=== PATIENT | female | born 1970 | race Caucasian/White ===

== ENCOUNTER 2017-09-08 19:09 | Emergency (ER) | payer MEDICAID ==
[~2017-09-08] VITALS: Ht 167.6 cm; Wt 98.4 kg
[~2017-09-08 19:09] MED LIST: [UNRECOGNIZED DRUG - CODE]
[2017-09-08 22:43] VITALS: BP 112/74
[2017-09-08] MEDS ORDERED: KETOROLAC TROMETH 60MG/2ML VIAL IM ONE (23:00)
== END 2017-09-08 23:16 | disposition home or self-care (01) ==
LOC: ER 19:09
DX: M94.0 Chondrocostal junction syndrome [Tietze] (principal); F17.210 Nicotine dependence, cigarettes, uncomplicated; I10 Essential (primary) hypertension
CPT/HCPCS: 71250; 96372; 99284; J1885

== ENCOUNTER 2022-03-27 10:59 | Emergency (ER) | payer MEDICAID ==
[~2022-03-27] VITALS: Ht 167.6 cm; Wt 90.2 kg
[2022-03-27] MEDS ORDERED: methylPREDNISolone SOD SUCC 125 MG/2 ML VL IM ONE (15:45)
[2022-03-27] MEDS ORDERED: diphenhdrAMINE HCL 50 MG/1 ML VL IM ONE (15:45)
[2022-03-27] MEDS ORDERED: ERY05OO OP (15:48)
[2022-03-27] MEDS ORDERED: CLIN300C8 PO (15:48)
[2022-03-27] MEDS ORDERED: PRED10TA PO (15:48)
[2022-03-27 16:46] VITALS: BP 165/122
== END 2022-03-27 16:53 | disposition home or self-care (01) ==
LOC: ER 10:59
DX: L25.9 Unspecified contact dermatitis, unspecified cause (principal); F17.210 Nicotine dependence, cigarettes, uncomplicated; I10 Essential (primary) hypertension
CPT/HCPCS: 96372; 99284; J1200; J2930

== ENCOUNTER 2022-09-08 08:26 | Emergency (ER) | payer MEDICAID ==
[~2022-09-08] VITALS: Ht 167.6 cm; Wt 90.9 kg
[~2022-09-08 08:26] MED LIST changes: +CLIN300C8 PO; +ERY05OO OP; +PRED10TA PO
[2022-09-08 09:20] VITALS: BP 153/83
[2022-09-08] MEDS ORDERED: HYDROcodone-ACET 10/325MG TAB PO ONE (09:45)
[2022-09-08] MEDS ORDERED: KETOROLAC TROMETH 60MG/2ML VIAL IM ONE (09:45)
[2022-09-08] MEDS ORDERED: PRED20TA2 PO (10:30)
[2022-09-08] MEDS ORDERED: IBUP800T27 PO (10:30)
== END 2022-09-08 10:33 | disposition home or self-care (01) ==
LOC: ER 08:26
DX: M54.41 Lumbago with sciatica, right side (principal); M51.34 Other intervertebral disc degeneration, thoracic region; I10 Essential (primary) hypertension; F17.210 Nicotine dependence, cigarettes, uncomplicated; Z90.49 Acquired absence of other specified parts of digestive tract; Z79.899 Other long term (current) drug therapy
CPT/HCPCS: 72100; 96372; 99283; J1885

== ENCOUNTER 2025-02-08 15:15 | Inpatient (IN) | payer MEDICAID ==
[~2025-02-08] VITALS: Ht 167.6 cm; Wt 93.3 kg
[~2025-02-08 15:15] MED LIST changes: +CLIN1CAP70 PO; -CLIN300C8 PO; +IBUP-1456 PO; +PRED20TA2 PO
[2025-02-08] MEDS ORDERED: cloNIDine 0.1 mg/24hr 7 DAY PATCH TD ONE (16:00)
[2025-02-08 16:35] LABS: Hematocrit 44.3 % (36.0-46.0); Hemoglobin 15.0 g/dL (12.2-16.2); Mean Corpuscular Hemoglobin 30.4 pg (28.0-32.0); Mean Corpuscular Volume 89.8 fL (80.0-100.0); Nucleated Red Blood Cells % 0.0 %
[2025-02-08 16:37] LABS: Sodium 139 mmol/L (136-145)
[2025-02-08 16:38] LABS: Anion Gap 11 (5-15); Carbon Dioxide 21 mmol/L (20-31)
[2025-02-08 16:42] LABS: Calcium 10.7 mg/dL (8.7-10.4); Chloride 107 mmol/L (98-107); Potassium 3.4 mmol/L (3.5-5.1)
[2025-02-08 16:43] LABS: BUN/Creatinine Ratio 19.7 (10.0-20.0); Blood Urea Nitrogen 15 mg/dL (9-23)
[2025-02-08 16:45] LABS: Glucose 109 mg/dL (74-106)
--- NOTE | 2025-02-08 17:19 | DVH ---
INDICATION: R/o fracture COMPARISON: None TECHNIQUE: CT of the right was performed without contrast. Volume transverse images were obtained and reconstructed in multiple planes using bone and soft tissue algorithms. CONTRAST: None Radiation Dose Information: CT Dose: CTDI volume is 7.75 mGy. Dose-length product is 2.13 mGy*cm FINDINGS: The alignment is normal. Small joint effusion There is no fracture, dislocation, or focal osseous lesions. The soft tissues are normal. IMPRESSION: 1. Small joint effusion 2. No acute fracture 3. All CT scans at this medical facility are performed using dose modulation techniques as appropriat e to a performed exam including the following: Automated exposure control was utilized; adjustment of the MA and/or KV according to patient size; and use of iterative reconstruction technique.
--- NOTE | 2025-02-08 17:23 | ED.PDOC ---
Musculoskeletal HPI Comments 54-year-old female presents with a chief complaint of acute left knee pain after a recent injury. They experienced acute pain in the left knee a few hours ago while patient was adjusting herself in her truck. The sensation was described as a rubber band that snapped. Onset was sudden. The pain is now located to the left knee and described as severe. Patient took ibuprofen and ice the knee with minimal improvement. Patient denies any numbness of the affected extremity. Unable to bear weight Denies trauma to the knee or recent fall Denies skin color changes around the knee Denies masses around the knee Denies fever chills night sweats nausea vomiting Denies previous surgeries to the knee nor significant injury Patient has a history of high blood pressure and has undergone a complete hysterectomy. She denies tobacco alcohol or drugs Chief Complaint: Lower Extremity Time Seen by MD: 15:24 Primary Care Provider: CHAR Flowers Notes: Nurses Notes, Medications, Allergies Allergies: Coded Allergies: Azithromycin (Verified Allergy, Unknown, 02/08/25) Ciprofloxacin (Verified Allergy, Unknown, 02/08/25) Uncoded Allergies: ADHESIVE (Allergy, Unknown, 02/08/25) Home Meds Active Scripts Prednisone (Prednisone) 20 Mg Tab, 40 MG PO DAILY, #20 MG Prov:CRIS MORAN 09/08/22 Ibuprofen (Ibuprofen) 800 Mg Tab, 1 TAB PO TID, #30 TAB Prov:CRIS MORAN 09/08/22 Erythromycin (Erythromycin) 5 Mg/Gm Oin, 1 MG OP 6XD for 7 Days, #1 OIN 0 Refills Prov:KELLY PORTER 03/27/22 Prednisone (Prednisone) 10 Mg Tab, 10 MG PO BID for 5 Days, #10 MG 0 Refills Prov:KELLY PORTER 03/27/22 Clindamycin Hcl (Clindamycin Hcl) 300 Mg Cap, 1 CAP PO TID for 7 Days, #21 CAP 0 Refills Prov:KELLY PORTER 03/27/22 Reported Medications Atenolol & Chlorthalidone (Atenolol/Chlorthalidone) 1 Tab Tab 01/06/12 Information Source: Patient Mode of Arrival: Wheelchair Past Medical History PAST MEDICAL HISTORY: HTN Surgical History: 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[employer]ANING History: No Pertinent [employer]PERATIONS SUPERVISOR [employer] History Family History Family History: Reviewed,noncontributory to illness Social History Smoker: Cigarettes Alcohol: Occasionally Drugs: Denies Drug Use Lives In: Home Physical Exam General Appearance: No Apparent Distress, Normal HEENT: Normal ENT Inspection, Pharynx Normal, TMs Normal Neck: Full Range of Motion, Non-Tender, Normal, Normal Inspection Respiratory: Chest Non-Tender, Lungs Clear, No Accessory Muscle Use, No Respiratory Distress, Normal Breath Sounds Cardiovascular: No Murmur, No Gallop, Regular Rate/Rhythm Breast Exam: Deferred Gastrointestinal: No Organomegaly, Non Tender, No Pulsatile Mass, Normal Bowel Sounds, Soft Genitalia: Deferred Pelvic: Deferred Rectal: Deferred Extremities: No calf tenderness, Normal capillary refill, Normal inspection, Normal range of motion, Non-tender, No pedal edema Musculoskeletal : Location: Left Extremity Location: Knee (Limited movement due to pain. No gross abnormality on inspection. Neurovascular sensation is intact and DP 2+) Apperance: Normal Neurologic: Alert, No Motor Deficits, Normal Affect, Normal Mood, No Sensory Deficits Cerebellar Function: Normal Reflexes: Normal Skin: Dry, Normal Color, Warm Lymphatic: No Adenopathy Was a procedure done? Was a procedure done?: No Differential Diagnosis EXT Differential Diagnosis: Fracture, Sprain, Dislocation X-Ray, Labs, Meds, VS Vital Signs Date Time Temp Pulse Resp B/P (MAP) Pulse Ox O2 Delivery O2 Flow Rate FiO2 02/08/25 20:53 98.6 86 16 151/85 (107) 97 98.6 02/08/25 15:58 175/101 02/08/25 15:18 98.1 84 16 175/101 98 98.1 Lab Test 02/08/25 20:28 02/08/25 16:23 Range/Units Urine Color Light-yellow Yellow Urine Clarity Clear Clear Urine pH 6.5 5.0-9.0 Urine Specific [place] 1.011 1.001-1.035 Urine Protein Negative Negative Urine Ketones Negative Negative Urine Blood Negative Negative /uL Urine Nitrite Negative Negative Urine Bilirubin Negative Negative Urine Urobilinogen Normal Negative mg/dL Urine Leukocyte Esterase Negative Negative /uL Urine Glucose Normal Normal mg/dL White Blood Count 19.0 H 4.4-10.8 10^3/uL Red Blood Count 4.94 4.0-5.20 10^6/uL Hemoglobin 15.0 12.2-16.2 g/dL Hematocrit 44.3 36.0-46.0 % Mean Corpuscular Volume 89.8 80.0-100.0 fL Mean Corpuscular Hemoglobin 30.4 28.0-32.0 pg Mean Corpuscular Hemoglobin Concent 33.9 32.0-36.0 g/dL Red Cell Distribution Width 12.8 11.8-14.3 % Platelet Count 407 140-450 10^3/uL Mean Platelet Volume 7.6 6.9-10.8 fL Neutrophils (%) (Auto) 78.2 37.0-80.0 % Lymphocytes (%) (Auto) 15.6 10.0-50.0 % Monocytes (%) (Auto) 5.3 0.0-12.0 % Eosinophils (%) (Auto) 0.5 0.0-7.0 % Basophils (%) (Auto) 0.4 0.0-2.0 % Neutrophils # (Auto) 14.9 H 1.6-8.6 10 ^3/uL Lymphocytes # (Auto) 3.0 0.4-5.4 10 ^3/uL Monocytes # (Auto) 1.0 0-1.3 10 ^3/uL Eosinophils # (Auto) 0.1 0-0.8 10 ^3/uL Basophils # (Auto) 0.1 0-0.2 10 ^3/uL Nucleated Red Blood Cells 0.0 % Sodium Level 139 136-145 mmol/L Potassium Level 3.4 L 3.5-5.1 mmol/L Chloride Level 107 98-107 mmol/L Carbon Dioxide Level 21 20-31 mmol/L Anion Gap 11 5-15 Blood Urea Nitrogen 15 9-23 mg/dL Creatinine 0.76 0.550-1.02 mg/dL Glomerular Filtration Rate Calc 92 >90 mL/min BUN/Creatinine Ratio 19.7 10.0-20.0 Serum Glucose 109 H 74-106 mg/dL Calcium Level 10.7 H 8.7-10.4 mg/dL Current Medications Medications (Trade) Dose Ordered Sig/Ever Route Start Time Stop Time Status Last Admin Clonidine HCl (Catapres Tablet) 0.1 mg ONCE ONCE PO 02/08/25 16:00 02/08/25 16:01 DC 02/08/25 15:58 Acetaminophen/ Hydrocodone Bitart ([place] 10/325MG Tab) 1 tab ONCE ONCE PO 02/08/25 18:00 02/08/25 18:01 DC 02/08/25 19:41 X-Ray, Labs, Meds, VS Comment 54-year-old female presents with a chief complaint of acute left knee pain after a recent injury. Patient arrives alert and oriented, ABC's intact, afebrile, vital signs stable, saturating well in room air CBC was ordered to exclude anemia, blood loss, or infection. BMP was ordered to exclude electrolyte abnormalities, renal failure, dehy dration, hyperglycemia Urinalysis was ordered to rule out UTI or hematuria. CT of the L Knee Diagnostic imaging ordered by me and results interpreted by radiology :small joint effusion Patients work up was remarkable for intractable left knee pain. Results were relayed to the patient and patient feels uncomfortable being discharged at this time. The patient's workup reveals that the patient needs further evaluation and/or treatment for the above medical conditions. We will benefit from an MRI and possible ortho consult Patient verbalized understanding of the above and is awaiting further evaluation by the admitting service. Time of 1ST Reevaluation: 17:21 Reevaluation 1ST: Unchanged Time of 2ND Reevaluation: 17:47 Reevaluation 2ND: Unchanged Patient Education/Counseling: Diagnosis, Treatment Family Education/Counseling: Diagnosis, Treatment Departure 1 Departure Time of Disposition: 17:47 Impression: Primary Impression: Intractable pain Additional Impression: Left knee pain Qualified Codes: M25.562 - Pain in left knee Disposition: 09 ADMITTED INPATIENT Condition: Fair Critical Care Note Critical Care Time?: No Stability Stability form required: No Heart Score Heart Score: Heart Score Response (Comments) Value History N/A 0 EKG N/A 0 Age N/A 0 Risk Factors N/A 0 Troponin N/A 0 Total 0 HENNY CHO NP Feb 08, 2025 17:23
[2025-02-08] MEDS: HYDROcodone-ACET 10/325MG TAB PO ONE (19:41)
[2025-02-08 20:36] LABS: Urine Protein, UAD Negative (Negative)
[2025-02-09] MEDS: SODIUM CHLORIDE 0.9% 1,000 ML IV SCH (01:11)
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
[2025-02-09] MEDS: ONDANSETRON HCL 4 MG/2 ML VIAL IV ONE (02:06)
[2025-02-09] MEDS: hydrALAZINE HCL 20 MG/ML VL IV ONE (02:06)
[2025-02-09] MEDS: HYDROcodone-ACET 5/325MG TAB PO PRN (02:21)
--- NOTE | 2025-02-09 02:47 | ECG ---
[facility] Test Date: 2025-02-09 Test Time: 02:41:43 Pat Name: JUANA BENAVIDEZ Department: ED Room: [facility] Gender: F Human Resource Adviser: geovany : 1970 Requested By: EMERGENCY EMERGENCY Order Number: [id number] Reading MD: Kuldeep Brower Measurements Intervals [place] Rate: 120 P: 60 FL: 145 QRS: 60 QRSD: 86 T: 19 QT: 328 QTc: 464 Interpretive Statements Sinus tachycardia Multiple ventricular premature complexes Aberrant complex Probable left atrial enlargement Minimal ST depression, diffuse leads Electronically Signed On 02-09-2025 18:26:13 PDT by Kuldeep Brower Please click the below link to view image of tracing.
[2025-02-09] MEDS: METOCLOPRAMIDE HCL 5MG/ml INJ 2ml VIAL IV ONE (03:49)
[2025-02-09] MEDS: ONDANSETRON HCL 4 MG/2 ML VIAL IV PRN (06:54)
[2025-02-09] MEDS: CHLORTHALIDONE 25 MG TAB PO SCH (08:49)
[2025-02-09 08:50] VITALS: PULSE 88; RESP 20; O2SAT 95
[2025-02-09] MEDS: PANTOPRAZOLE 40 MG/10 ML VIAL INJ IV SCH (10:20)
[2025-02-09] MEDS: ATENOLOL 25 MG TAB PO SCH (10:21)
[2025-02-09 14:29] LABS: Hematocrit 44.9 % (36.0-46.0); Hemoglobin 15.4 g/dL (12.2-16.2); Mean Corpuscular Hemoglobin 30.9 pg (28.0-32.0); Mean Corpuscular Volume 90.2 fL (80.0-100.0); Nucleated Red Blood Cells % 0.1 %
--- NOTE | 2025-02-09 14:49 | DVHPNRES ---
Progress Note Date Seen: Feb 09, 2025 Resident Creating Document: TALHA CARTER RESIDENT Medical Necessity Reason Pt with a Central, PICC or Fol: No Subjective Review of Systems Patient is a 54-year-old female with prior medical history of hypertension, anxiety, herniated disc, and cervical intraepithelial neoplasm, who presented to the ED with chief complaint of left knee pain. The patient states yesterday she was adjusting the seat in her car when she felt a sudden popping tearing sensation in her left knee accompanied by sudden onset of sharp pain described as constant, intensity 10/10, which is worse on the lateral aspect of her knee. additionally states she can no longer bear weight on her left leg, which prompted her to seek medical care. On evaluation in the ED, patient was found to be hypertensive with blood pressure of 175/101 and had limited movement of the left knee. Initial labs significant for WBCs of 19 and mild hypokalemia. Knee CT shows a small joint effusion and no acute fracture. Patient was given p.o. clonidine for hypertension. patient was started on pain regimen and was admitted for further workup and monitoring. Surgical: Colposcopy, Bilateral oophorectomy and total hysterectomy in October of 2024 Social: Refers occasional marijuana use approximately 3 times a week, refers 20 year tobacco habit of 6 cigarettes a day states she quit 1 year ago, currently denies alcohol use. States that she lives in her own and feels safe. Patient seen in the ED. She is AOx4. Currently states she well, however the pain persists. Currently she states the pain is 6/10 in intensity. additionally refers to episodes of vomiting overnight, however this has been resolved. patient has been persistently hypertensive, home medications were started again. orthopedics consult has been placed, Dr. Weston has recommended an MRI of the knee be obtained. Patient is currently pending MRI knee and further evaluation by orthopedics. We will continue to monitor. Review of Systems: Constitutional: Denies weight loss, fever and chills. HEENT: Denies changes in vision and hearing. Respiratory: Denies shortness of breath and cough Cardiovascular: Denies chest discomfort or palpitations GI: Denies abdominal distention, abdominal pain, diarrhea : Denies dysuria and urinary frequency. Musculoskeletal: Refers pain in the left knee, refers inability to bear weight on left leg Skin: Denies rash and pruritus. Neurological: denies dizziness headache vision or hearing problems Objective vital signs Vital Sign Date Time Temp Pulse Resp B/P (MAP) Pulse Ox O2 Delivery O2 Flow Rate FiO2 02/09/25 10:22 84 20 131/80 (97) 95 02/09/25 08:50 Room Air* 0 21 02/09/25 08:50 97.7 97.7 medications Current Medications Medications Dose Ordered Sig/Ever Route Start Time Stop Time Status Last Admin Dose Admin Sodium Chloride 1,000 ml @ 60 mls/hr [id number] IV 02/08/25 21:45 Acetaminophen/ Hydrocodone Bitart 1 tab Q4HP PRN PO 02/08/25 21:45 02/09/25 06:54 1 TAB Atenolol 50 mg DAILY PO 02/09/25 10:00 02/09/25 10:21 50 MG Chlorthalidone 25 mg DAILY@BREAKFAST PO 02/09/25 08:00 02/09/25 08:49 25 MG Ondansetron HCl 4 mg Q6HPRN PRN IV 02/09/25 03:15 02/09/25 06:54 4 MG Pantoprazole Sodium 40 mg DAILY IV 02/09/25 10:00 02/09/25 10:20 40 MG Losartan Potassium 50 mg DAILY PO 02/10/25 10:00 UNV Examination General: The patient alert and oriented in person place and time. Patient following commands HEENT: Normocephalic, atraumatic, reactive pupils, EOM intact, pink conjunctiva, pink moist mucous membrane Respiratory/pulmonary: Bilateral chest expansion, Clear lungs bilaterally, vesicular murmurs present in almost all lung arias, no associated crackles or wheezes. Abdomen: Obese, Abdomen nondistended, there is no pain to palpation in any of the abdominal quadrants, no palpable masses. Extremities: Left knee is swollen, small lump has formed above the lateral aspect of the left knee, knee is painful to the touch, decreased mobility of left knee. Right leg physical exam without any alterations. Peripheral pulses 3+ radial right, 3+ radials soft. 3+ dorsalis pedis right. 3+ dorsalis pedis left Skin: No rashes or pruritus Neurological: Intact cranial nerves with no focal neurologic deficits laboratory and microbiology Laboratory Tests 02/09/25 13:47 02/08/25 16:23 Test 02/08/25 16:23 Range/Units Serum Glucose 109 H 74-106 mg/dL Problem List/Assessment/Plan Problem List/Assessment/Plan Assessment and Plan: Intractable knee pain secondary to questionable ligament/muscle tear - [place] 5 mg p.o. Q 4h PRN - [place] 10 mg p.o. q.4 hours p.r.n., discontinued - left knee CT: Small effusion, no acute fractures - MRI left knee pending - Ortho consult pending Joint effusion Leukocytosis, likely reactive Hypertensive urgency - Hydralazine 10 mg IV once - Clonidine 0.1 mg p.o. once Hypertension, uncontrolled - Chlorothialidone 25 mg p.o. daily - Atenolol 50 mg p.o. daily - Losartan 50 mg p.o. daily Obesity, BMI 32.7 kg/m2 History of cervical intraepithelial neoplasia -s/p bilateral oophorectomy and total hysterectomy GI prophylaxis: Protonix 40 IV daily Case discussed with Plan discussed with: Patient My Orders My Orders Orders - TALHA CARTER Procedure Category Date Status Time Left Knee Wo Contrast MRI 02/09/25 Logged 14:16 Losartan Tablet PHA 02/10/25 Logged (Cozaar Tablet) 10:00 Date of Service: Feb 09, 2025 Billing Provider: ANANDA POP MD Common Visit Codes: [id number] INP/OBS CARE(HIGH) Secondary Visit Codes: [id number] CARE PLAN 30 MINUTES TALHA CARTER Feb 09, 2025 14:49 ANANDA POP MD Feb 14, 2025 20:30
--- NOTE | 2025-02-09 17:26 | DVH ---
EXAM: MRI LEFT KNEE WO CONTRAST INDICATION: Evaluate L knee for possible tear TECHNIQUE: Multiplanar and multisequence MR imaging of the left ankle was performed in the absence of gadolinium contrast. COMPARISON: CT CT L KNEE WO CONTRAST on DOS: 02/08/25 FINDINGS: On coronal images there is a tear through the free edge of the body of the medial meniscus with sligh t medial subluxation of the meniscus. There is thinning of the hyaline cartilage surfaces in the dis phill medial femoral condyle with subchondral edema The lateral meniscus is intact The posterior cruciate ligament is intact. The upper half of the anterior cruciate ligament is not w ell seen is presumably torn The medial collateral ligament is intact. The lateral collateral ligament is intact. On sagittal images the quadriceps and patellar tendons are intact. There is a moderate size joint effusion present On transaxial images the hyaline cartilage surfaces covering the patellofemoral joint are smooth. The re is a hematoma in the soft tissues posterior to the medial knee joint IMPRESSION: 1. No acute fracture is present. 2. There is a tear through the central body of the medial meniscus which may be degenerative as there is grade 4 chondrosis in the overlying medial femoral condyle. 3. Moderate-sized joint effusion. Probable small hematomata posterior to the medial knee joint
[2025-02-09 23:23] VITALS: BP 148/94; PULSE 68; RESP 16; TEMP 98; O2SAT 96
[2025-02-10 00:14] VITALS: BP 148/94; PULSE 68; RESP 16; TEMP 98; O2SAT 96
[2025-02-10 05:00] VITALS: BP 129/68; PULSE 72; RESP 18; TEMP 98.3; O2SAT 99
[2025-02-10 06:31] LABS: Hematocrit 40.7 % (36.0-46.0); Hemoglobin 14.1 g/dL (12.2-16.2); Mean Corpuscular Hemoglobin 30.9 pg (28.0-32.0); Mean Corpuscular Volume 89.5 fL (80.0-100.0); Nucleated Red Blood Cells % 0.1 %
[2025-02-10 06:44] LABS: Anion Gap 11 (5-15); Calcium 9.3 mg/dL (8.7-10.4); Carbon Dioxide 23 mmol/L (20-31); Chloride 106 mmol/L (98-107); Sodium 140 mmol/L (136-145)
[2025-02-10 06:50] LABS: BUN/Creatinine Ratio 22.4 (10.0-20.0); Blood Urea Nitrogen 13 mg/dL (9-23); Glucose 104 mg/dL (74-106); Potassium 3.0 mmol/L (3.5-5.1)
[2025-02-10 09:00] VITALS: BP 138/79; PULSE 67; RESP 17; TEMP 97.4; O2SAT 97
[2025-02-10] MEDS: POTASSIUM CHL 20 Meq TABLET PO ONE (10:21)
[2025-02-10] MEDS: LOSARTAN POTASSIUM 50 MG TAB PO SCH (10:27)
[2025-02-10 13:00] VITALS: BP 108/71; PULSE 61; RESP 18; TEMP 97.9; O2SAT 97
--- NOTE | 2025-02-10 16:36 | DVHPNRES ---
Progress Note Date Seen: Feb 10, 2025 Resident Creating Document: TALHA CARTER RESIDENT Medical Necessity Reason Pt with a Central, PICC or Fol: No Subjective Review of Systems Patient is a 54-year-old female with prior medical history of hypertension, anxiety, herniated disc, and cervical intraepithelial neoplasm, who presented to the ED with chief complaint of left knee pain. The patient states yesterday she was adjusting the seat in her car when she felt a sudden popping tearing sensation in her left knee accompanied by sudden onset of sharp pain described as constant, intensity 10/10, which is worse on the lateral aspect of her knee. additionally states she can no longer bear weight on her left leg, which prompted her to seek medical care. On evaluation in the ED, patient was found to be hypertensive with blood pressure of 175/101 and had limited movement of the left knee. Initial labs significant for WBCs of 19 and mild hypokalemia. Knee CT shows a small joint effusion and no acute fracture. Patient was given p.o. clonidine for hypertension. patient was started on pain regimen and was admitted for further workup and monitoring. Patient seen at bedside. She is AOx4. She feels well, states that the pain has decreased and is currently 4/10, and swelling has come down. She states she still can't bear weight on her left leg, but was a brought a walker and has been able to ambulate with it. No adverse events overnight. Patient has remained slightly hypertensive, other vitals have been stable. Follow up labs are significant for WBCs 11.5, improved from yesterday, and hypokalemia. MRI knee tear through the central body of the medial meniscus which may be degenerative esterase grade 4 chondrosis in the overlying medial femoral condyle, moderate size joint effusion, small hematoma posterior to the medial knee joint, and upper half of the ACL not well seen is presumably torn. patient is pending evaluation by Orthopedics. Fr now she has been recommended not to ambulate using the walker until further instructions have been made by orthopedics. We will continue to monitor. Objective vital signs Vital Sign Date Time Temp Pulse Resp B/P (MAP) Pulse Ox O2 Delivery O2 Flow Rate FiO2 02/10/25 10:28 72 129/68 02/10/25 08:00 Room Air* 0 21 02/10/25 05:00 98.3 18 99 98.3 Total Intake and Output 02/09/25 02/09/25 02/10/25 15:00 23:00 07:00 Intake Total 860 ml Balance 860 ml medications Current Medications Medications Dose Ordered Sig/Ever Route Start Time Stop Time Status Last Admin Dose Admin Acetaminophen/ Hydrocodone Bitart 1 tab Q4HP PRN PO 02/08/25 21:45 02/10/25 15:59 1 TAB Atenolol 50 mg DAILY PO 02/09/25 10:00 02/10/25 10:28 50 MG Chlorthalidone 25 mg DAILY@BREAKFAST PO 02/09/25 08:00 02/10/25 10:26 25 MG Ondansetron HCl 4 mg Q6HPRN PRN IV 02/09/25 03:15 02/09/25 06:54 4 MG Pantoprazole Sodium 40 mg DAILY IV 02/09/25 10:00 02/10/25 10:28 40 MG Losartan Potassium 50 mg DAILY PO 02/10/25 10:00 02/10/25 10:27 50 MG Examination General: The patient alert and oriented in person place and time. Patient following commands HEENT: Normocephalic, atraumatic, reactive pupils, EOM intact, pink conjunctiva, pink moist mucous membrane Respiratory/pulmonary: Bilateral chest expansion, Clear lungs bilaterally, vesicular murmurs present in almost all lung arias, no associated crackles or wheezes. Abdomen: Obese, Abdomen nondistended, there is no pain to palpation in any of the abdominal quadrants, no palpable masses. Extremities: Left knee is swollen, small lump has formed above the lateral aspect of the left knee, knee is painful to the touch, decreased mobility of left knee. Right leg physical exam without any alterations. Peripheral pulses 3+ radial right, 3+ radials soft. 3+ dorsalis pedis right. 3+ dorsalis pedis left Skin: No rashes or pruritus Neurological: Intact cranial nerves with no focal neurologic deficits laboratory and microbiology Laboratory Tests 02/10/25 05:18 Test 02/10/25 05:18 Range/Units Serum Glucose 104 74-106 mg/dL Problem List/Assessment/Plan Problem List/Assessment/Plan Assessment and Plan: Intractable knee pain secondary to questionable ligament/muscle tear - [place] 5 mg p.o. Q 4h PRN - [place] 10 mg p.o. q.4 hours p.r.n., discontinued - left knee CT: Small effusion, no acute fractures - MRI left knee pending - Ortho consult pending Left medial meniscus tear Possible ACL tear - Left knee MRI: There is a tear through the central body of the medial meniscus which may be degenerative as there is grade 4 chondrosis in the overlying medial femoral condyle. Moderate sized joint effusion. Probable small hematoma posterior to the medial knee joint. Of the anterior cruciate ligament is not well seen as presumably torn. Joint effusion Leukocytosis, likely reactive Hypertensive urgency - Hydralazine 10 mg IV once - Clonidine 0.1 mg p.o. once Hypertension, uncontrolled - Chlorothialidone 25 mg p.o. daily - Atenolol 50 mg p.o. daily - Losartan 50 mg p.o. daily Obesity, BMI 32.7 kg/m2 History of cervical intraepithelial neoplasia -s/p bilateral oophorectomy and total hysterectomy Marijuana use -Patient has been counseled on the cessation of marijuana use for over 15 minutes GI prophylaxis: Protonix 40 IV daily Case discussed with Dr. Cordon Goals of care discussed with the patient over 35 minutes, she states she understands and agrees. Plan discussed with: Patient My Orders My Orders Orders - TALHA CARTER RESIDENT Procedure Category Date Status Time Hepatitis B Surface LAB 02/10/25 In Process Antigen 00:44 Hepatitis C Antibody LAB 02/10/25 In Process 00:44 * Technical Internship CONS 02/10/25 Transmitted Consult 00:44 Date of Service: Feb 10, 2025 Billing Provider: ANANDA CORDON MD Common Visit Codes: [id number] INP/OBS CARE(HIGH) TALHA CARTER RESIDENT Feb 10, 2025 16:36 ANANDA CORDON MD Feb 14, 2025 20:30
[2025-02-10 17:00] VITALS: BP 116/71; PULSE 65; RESP 17; TEMP 97.3; O2SAT 97
--- NOTE | 2025-02-10 19:44 | DVHINCON2 ---
Consult Note Consult Consult Note History of Present Illness Ms. Amanda Davis is a 54-year-old female with an approximately 2-day history of acute onset left knee pain. She reports that while attempting to get into her truck, she twisted her left knee and felt a sudden pop localized to the medial aspect. She was able to drive home, but upon exiting the truck, experienced severe medial knee pain accompanied by noticeable swelling. She presented to the emergency department, where she was admitted for pain control. On my evaluation today, CT and MRI of the left knee were reviewed: No acute fracture is present.Mild OA there is a tear through the central body of the medial meniscus which may be degenerative as there is grade 4 chondrosis in the overlying medial femoral condyle. Moderate-sized joint effusion. Probable small hematomata posterior to the medial knee joint Patient denies numbness, tingling, lower extremity weakness, or other joint pain. She does report swelling, likely secondary to a small hemoarthrosis. No mechanical symptoms after initial injury reported by patient other than pain, --- Physical Examination Inspection: Mild swelling of the left knee, no erythema, no ecchymosis Palpation: Tenderness along the medial joint line ROM: 090, some pain through most range, pain worsening with knee tightness at terminal flexion arc Stability: No gross instability on varus/valgus stress Neurovascular: Sensation intact to light touch; motor function intact; dorsalis pedis and posterior tibial pulses palpable Other joints: Non-tender, full range of motion --- Imaging CT / MRI Left Knee: No acute fracture is present.Mild OA there is a tear through the central body of the medial meniscus which may be degenerative as there is grade 4 chondrosis in the overlying medial femoral condyle. Moderate-sized joint effusion. Probable small hematomata posterior to the medial knee joint --- Assessment 1. Acute medial meniscus tear left knee 2. Mild hemoarthrosis, left knee 3. Osteoarthritis, left knee --- Plan Compression wrap for swelling control Pain management per primary team Activity: Weight-bearing as tolerated Outpatient follow-up with orthopedic clinic for further management (possible arthroscopic evaluation depending on symptom persistence) Monitor for increasing swelling, redness, fever, or inability to bear weight No acute surgical intervention indicated at this time Plan discussed with: Patient, Other (bedside nurse) Visit Coding Surgery Date of Service if different f: Feb 10, 2025 Billing Provider: HIDALGO,RAI PAC Surgery Visit Codes: 88903 - INP CONSULT <55 MIN RAI HIDALGO PAC Feb 10, 2025 19:44
[2025-02-10 20:57] VITALS: BP 130/77; PULSE 71; RESP 18; TEMP 97.8; O2SAT 97
[2025-02-11 01:00] VITALS: BP 112/67; PULSE 66; RESP 17; TEMP 97.8; O2SAT 97
[2025-02-11 05:00] VITALS: BP 110/62; PULSE 17; TEMP 97.8; O2SAT 98
[2025-02-11 06:11] LABS: Hematocrit 41.5 % (36.0-46.0); Hemoglobin 14.3 g/dL (12.2-16.2); Mean Corpuscular Hemoglobin 31.1 pg (28.0-32.0); Mean Corpuscular Volume 90.3 fL (80.0-100.0); Nucleated Red Blood Cells % 0.0 %
[2025-02-11 06:28] LABS: Alanine Aminotransferase 17 U/L (7-40); Albumin 4.2 g/dL (3.2-4.8); Alkaline Phosphatase 85 U/L (46-116); Anion Gap 10 (5-15); BUN/Creatinine Ratio 28.1 (10.0-20.0); Blood Urea Nitrogen 18 mg/dL (9-23); Calcium 9.4 mg/dL (8.7-10.4); Carbon Dioxide 22 mmol/L (20-31); Glucose 98 mg/dL (74-106); Potassium 3.6 mmol/L (3.5-5.1); Sodium 140 mmol/L (136-145); Total Protein 6.3 g/dL (5.7-8.2)
[2025-02-11 06:29] LABS: Bilirubin, Total 1.1 mg/dL (0.2-1.0)
[2025-02-11 06:33] LABS: Chloride 108 mmol/L (98-107)
[2025-02-11 09:00] VITALS: BP 132/97; PULSE 72; RESP 17; TEMP 98; O2SAT 97
[2025-02-11 13:00] VITALS: BP 123/77; PULSE 60; RESP 17; TEMP 97.9; O2SAT 95
[2025-02-11 14:18] LABS: Hepatitis B Surface Antigen Negative (Negative); Hepatitis C Antibody Negative (Negative)
--- NOTE | 2025-02-11 16:03 | DVHDSRES ---
Discharge Summary Date of Admission Resident Creating Document: TALHA CARTER RESIDENT Feb 08, 2025 at 21:44 Date of Discharge: Feb 11, 2025 Admitting Diagnosis Intractable knee pain Labs/Diagnostic Data: Laboratory Results Test 02/11/25 05:27 02/10/25 05:18 02/08/25 20:28 White Blood Count 8.5 10^3/uL (4.4-10.8) Red Blood Count 4.60 10^6/uL (4.0-5.20) Hemoglobin 14.3 g/dL (12.2-16.2) Hematocrit 41.5 % (36.0-46.0) Mean Corpuscular Volume 90.3 fL (80.0-100.0) Mean Corpuscular Hemoglobin 31.1 pg (28.0-32.0) Mean Corpuscular Hemoglobin Concent 34.5 g/dL (32.0-36.0) Red Cell Distribution Width 13.0 % (11.8-14.3) Platelet Count 336 10^3/uL (140-450) Mean Platelet Volume 7.6 fL (6.9-10.8) Neutrophils (%) (Auto) 47.5 % (37.0-80.0) Lymphocytes (%) (Auto) 41.6 % (10.0-50.0) Monocytes (%) (Auto) 7.2 % (0.0-12.0) Eosinophils (%) (Auto) 3.1 % (0.0-7.0) Basophils (%) (Auto) 0.6 % (0.0-2.0) Neutrophils # (Auto) 4.0 10 ^3/uL (1.6-8.6) Lymphocytes # (Auto) 3.5 10 ^3/uL (0.4-5.4) Monocytes # (Auto) 0.6 10 ^3/uL (0-1.3) Eosinophils # (Auto) 0.3 10 ^3/uL (0-0.8) Basophils # (Auto) 0 10 ^3/uL (0-0.2) Nucleated Red Blood Cells 0.0 % Sodium Level 140 mmol/L (136-145) Potassium Level 3.6 mmol/L (3.5-5.1) Chloride Level 108 mmol/L (98-107) Carbon Dioxide Level 22 mmol/L (20-31) Anion Gap 10 (5-15) Blood Urea Nitrogen 18 mg/dL (9-23) Creatinine 0.64 mg/dL (0.550-1.02) Glomerular Filtration Rate Calc 104 mL/min (>90) BUN/Creatinine Ratio 28.1 (10.0-20.0) Serum Glucose 98 mg/dL (74-106) Calcium Level 9.4 mg/dL (8.7-10.4) Total Bilirubin 1.1 mg/dL (0.2-1.0) Aspartate Amino Transferase (AST) 17 U/L (13-40) Alanine Aminotransferase (ALT) 17 U/L (7-40) Alkaline Phosphatase 85 U/L (46-116) Total Protein 6.3 g/dL (5.7-8.2) Albumin 4.2 g/dL (3.2-4.8) Hepatitis B Surface Antigen Negative (Negative) Hepatitis C Antibody Negative (Negative) Urine Color Light-yellow (Yellow) Urine Clarity Clear (Clear) Urine pH 6.5 (5.0-9.0) Urine Specific [place] 1.011 (1.001-1.035) Urine Protein Negative (Negative) Urine Ketones Negative (Negative) Urine Blood Negative /uL (Negative) Urine Nitrite Negative (Negative) Urine Bilirubin Negative (Negative) Urine Urobilinogen Normal mg/dL (Negative) Urine Leukocyte Esterase Negative /uL (Negative) Urine Glucose Normal mg/dL (Normal) Other Laboratory Tests 02/11/25 05:27 Brief Hx & Hospital Course: Patient is a 54-year-old female with prior medical history of hypertension, anxiety, herniated disc, and cervical intraepithelial neoplasm, who presented to the ED with chief complaint of left knee pain. The patient states yesterday she was adjusting the seat in her car when she felt a sudden popping tearing sensation in her left knee accompanied by sudden onset of sharp pain described as constant, intensity 10/10, which is worse on the lateral aspect of her knee. additionally states she can no longer bear weight on her left leg, which prompted her to seek medical care. On evaluation in the ED, patient was found to be hypertensive with blood pressure of 175/101 and had limited movement of the left knee. Initial labs significant for WBCs of 19 and mild hypokalemia. Knee CT shows a small joint effusion and no acute fracture. Patient was given p.o. clonidine for hypertension. Patient was started on pain regimen and was admitted for further workup and monitoring. MRI of the left knee shows central body of the medial meniscus which may be degenerative esterase grade 4 chondrosis in the overlying medial femoral condyle, moderate size joint effusion, small hematoma posterior to the medial knee joint, and upper half of the ACL not well seen is presumably torn. The patient was evaluated by Orthopedics who state that there is no indication for surgical intervention at this time, recommend compression wrap for swelling control, pain management, weight-bearing as tolerated, and patient follow-up with orthopedic clinic for further management. Social service consult was placed for home health with PT, patient has been accepted and authorized for home PT. The patient has progress favorably. evaluation today, the patient states that she feels well, the pain has improved, and swelling has decreased. Patient was fitted with a knee brace by Orthopedics and she has been able to ambulate with the help of a walker. Vitals have been stable. Follow up labs are within normal range. She is considered stable for discharge home with home PT. She has been scheduled for a follow-up appointment at the discharge clinic. All recommendations have been thoroughly explained and she states she understands and agrees. General: The patient alert and oriented in person place and time. Patient following commands HEENT: Normocephalic, atraumatic, reactive pupils, EOM intact, pink conjunctiva, pink moist mucous membrane Respiratory/pulmonary: Bilateral chest expansion, Clear lungs bilaterally, vesicular murmurs present in almost all lung arias, no associated crackles or wheezes. Cardiovascular: Normal RRR, Normal S1 and S2 Abdomen: Obese, Abdomen nondistended, there is no pain to palpation in any of the abdominal quadrants, no palpable masses. Extremities: Left knee is slightly swollen, knee is painful to the touch, decreased mobility of left knee. Right leg physical exam without any alterations. Peripheral pulses 3+ radial right, 3+ radials soft. 3+ dorsalis pedis right. 3+ dorsalis pedis left Skin: No rashes or pruritus Neurological: Intact cranial nerves with no focal neurologic deficits Case discussed with Dr. Cordon Goals of care discussed with the patient for over 35 minutes. Consults/Reason for consult Orthopedics was consulted due to suspicion of ligament tear Operations or Procedures INDICATION: R/o fracture COMPARISON: None TECHNIQUE: CT of the right was performed without contrast. Volume transverse images were obtained and reconstructed in multiple planes using bone and soft tissue algorithms. CONTRAST: None Radiation Dose Information: CT Dose: CTDI volume is 7.75 mGy. Dose-length product is 2.13 mGy*cm FINDINGS: The alignment is normal. Small joint effusion There is no fracture, dislocation, or focal osseous lesions. The soft tissues are normal. IMPRESSION: 1. Small joint effusion 2. No acute fracture 3. All CT scans at this medical facility are performed using dose modulation techniques as appropriate to a performed exam including the following: Automated exposure control was utilized; adjustment of the MA and/or KV according to patient size; and use of iterative reconstruction technique. EXAM: MRI LEFT KNEE WO CONTRAST INDICATION: Evaluate L knee for possible tear TECHNIQUE: Multiplanar and multisequence MR imaging of the left ankle was performed in the absence of gadolinium contrast. COMPARISON: CT CT L KNEE WO CONTRAST on DOS: 02/08/25 FINDINGS: On coronal images there is a tear through the free edge of the body of the medial meniscus with slight medial subluxation of the meniscus. There is thinning of the hyaline cartilage surfaces in the distal medial femoral condyle with subchondral edema The lateral meniscus is intact The posterior cruciate ligament is intact. The upper half of the anterior cruciate ligament is not well seen is presumably torn The medial collateral ligament is intact. The lateral collateral ligament is intact. On sagittal images the quadriceps and patellar tendons are intact. There is a moderate size joint effusion present On transaxial images the hyaline cartilage surfaces covering the patellofemoral joint are smooth. There is a hematoma in the soft tissues posterior to the medial knee joint IMPRESSION: 1. No acute fracture is present. 2. There is a tear through the central body of the medial meniscus which may be degenerative as there is grade 4 chondrosis in the overlying medial femoral condyle. 3. Moderate-sized joint effusion. Probable small hematomata posterior to the medial knee joint Condition at Discharge: Stable Final Diagnosis/Problems List Intractable knee pain secondary to meniscus tear Questionable ACL tear Joint effusion Leukocytosis, likley reactive Hypertensive urgency Hypertension uncontrolled Obesity, BMI 32.7 kg/m History of TY Marijuana use Discharge Disposition: Home Discharge Instruct/Medications Diet: Cardiac 2g Na,low cholest Activity: No Restrictions, As Tolerated Follow Up/Referral: Follow up with PCP in 1 week Follow up with outpatient orthopedics Follow up in discharge clinic in 1 week Medications: Continue home meds Scheduled PRN Hydrocodone-Acetaminophen (Hydrocodone Bitartrate/AC 5-325 mg), 1 TAB PO Q6HP PRN Miscellaneous Medications Atenolol & Chlorthalidone (Atenolol/Chlorthalidone), (Reported) Discharge Statement: "Patient was advised to return to the ER or call 911 if any headaches, dizziness, shortness of breath, chest pain, abdominal pain, bleeding, fevers, or worsening of medical condition. Patient was counseled about treatment plan, medications, possible side effects, patientverbalized understanding. All questions were answered to the best of my ability. This discharge took greater then 30 minutes in planning, reviewing documentation, counseling the patient, and discussing with other team members." ASSESSMENT ASSESSMENT Assessment Intractable knee pain secondary to meniscus tear Questionable ACL tear Joint effusion Leukocytosis, likley reactive Hypertensive urgency Hypertension uncontrolled Obesity, BMI 32.7 kg/m History of TY Marijuana use Date of Service: Feb 12, 2025 Billing Provider: ANANDA CORDON MD Common Visit Codes: 20389-WXO/OBS DISCH DAY >30min TALHA CARTER RESIDENT Feb 11, 2025 16:03 ANANDA CORDON MD Feb 14, 2025 20:31
[2025-02-11 17:58] VITALS: BP 107/67; PULSE 79; RESP 17; TEMP 97.3; O2SAT 96
[2025-02-11 21:00] VITALS: BP 119/72; PULSE 91; RESP 20; TEMP 98.4; O2SAT 98
[2025-02-12 01:00] VITALS: BP 128/85; PULSE 88; RESP 20; TEMP 97.6; O2SAT 98
[2025-02-12 05:00] VITALS: BP 103/57; PULSE 84; RESP 20; TEMP 98.5; O2SAT 97
[2025-02-12 09:00] VITALS: BP 97/66; PULSE 62; RESP 17; TEMP 97.5; O2SAT 97
[2025-02-12] MEDS ORDERED: HYDR-4902 PO (12:57)
[2025-02-12 13:00] VITALS: BP 130/86; PULSE 74; RESP 18; TEMP 98; O2SAT 95
[2025-02-12 16:55] VITALS: BP 140/82; PULSE 70; RESP 18; TEMP 97.6; O2SAT 97
--- NOTE | 2025-02-12 19:12 | DVHPNRES ---
Progress Note Date Seen: Feb 12, 2025 Resident Creating Document: TALHA CARTER RESIDENT Medical Necessity Reason Pt with a Central, PICC or Fol: No Subjective Review of Systems Patient is a 54-year-old female with prior medical history of hypertension, anxiety, herniated disc, and cervical intraepithelial neoplasm, who presented to the ED with chief complaint of left knee pain. The patient states yesterday she was adjusting the seat in her car when she felt a sudden popping tearing sensation in her left knee accompanied by sudden onset of sharp pain described as constant, intensity 10/10, which is worse on the lateral aspect of her knee. additionally states she can no longer bear weight on her left leg, which prompted her to seek medical care. On evaluation in the ED, patient was found to be hypertensive with blood pressure of 175/101 and had limited movement of the left knee. Initial labs significant for WBCs of 19 and mild hypokalemia. Knee CT shows a small joint effusion and no acute fracture. Patient was given p.o. clonidine for hypertension. Patient was started on pain regimen and was admitted for further workup and monitoring. MRI of the left knee shows central body of the medial meniscus which may be degenerative esterase grade 4 chondrosis in the overlying medial femoral condyle, moderate size joint effusion, small hematoma posterior to the medial knee joint, and upper half of the ACL not well seen is presumably torn. The patient was evaluated by Orthopedics who state that there is no indication for surgical intervention at this time, recommend compression wrap for swelling control, pain management, weight-bearing as tolerated, and patient follow-up with orthopedic clinic for further management. Social service consult was placed for home health with PT, patient has been accepted and authorized for home PT. The patient has progress favorably. evaluation today, the patient states that she feels well, the pain has improved, and swelling has decreased. Patient was fitted with a knee brace by Orthopedics and she has been able to ambulate with the help of a walker. Vitals have been stable. Follow up labs are within normal range. She is considered stable for discharge home with home PT. She has been scheduled for a follow-up appointment at the discharge clinic. All recommendations have been thoroughly explained and she states she understands and agrees. Patient seen at bedside. patient has been discharge, however she will be inpatient due to requirement of a walker. patient states she feels well, pain has decreased significantly, swelling has decreased, she is able to ambulate with the help of hospitals walker, and she is tolerating the brace adequately. No adverse events overnight. Vitals have been stable. Walker was delivered to bedside today. Patient will be going home. Objective vital signs Vital Sign Date Time Temp Pulse Resp B/P (MAP) Pulse Ox O2 Delivery O2 Flow Rate FiO2 02/12/25 16:55 97.6 70 18 140/82 (101) 97 97.6 02/12/25 07:54 Room Air* 0 21 Total Intake and Output 02/11/25 02/11/25 02/12/25 15:00 23:00 07:00 Intake Total 1660 ml 800 ml Balance 1660 ml 800 ml medications Current Medications Medications Dose Ordered Sig/Ever Route Start Time Stop Time Status Last Admin Dose Admin Acetaminophen/ Hydrocodone Bitart 1 tab Q4HP PRN PO 02/08/25 21:45 02/12/25 13:42 1 TAB Atenolol 50 mg DAILY PO 02/09/25 10:00 02/12/25 13:30 50 MG Chlorthalidone 25 mg DAILY@BREAKFAST PO 02/09/25 08:00 02/11/25 08:30 25 MG Ondansetron HCl 4 mg Q6HPRN PRN IV 02/09/25 03:15 02/09/25 06:54 4 MG Pantoprazole Sodium 40 mg DAILY IV 02/09/25 10:00 02/11/25 10:18 40 MG Losartan Potassium 50 mg DAILY PO 02/10/25 10:00 02/12/25 13:30 50 MG Examination General: The patient alert and oriented in person place and time. Patient following commands HEENT: Normocephalic, atraumatic, reactive pupils, EOM intact, pink conjunctiva, pink moist mucous membrane Respiratory/pulmonary: Bilateral chest expansion, Clear lungs bilaterally, vesicular murmurs present in almost all lung arias, no associated crackles or wheezes. Cardiovascular: Normal RRR, Normal S1 and S2 Abdomen: Obese, Abdomen nondistended, there is no pain to palpation in any of the abdominal quadrants, no palpable masses. Extremities: Left knee is slightly swollen, knee is painful to the touch, decreased mobility of left knee. Presence of left knee brace. Right leg physical exam without any alterations. Peripheral pulses 3+ radial right, 3+ radials soft. 3+ dorsalis pedis right. 3+ dorsalis pedis left Skin: No rashes or pruritus Neurological: Intact cranial nerves with no focal neurologic deficit laboratory and microbiology Laboratory Tests 02/11/25 05:27 Test 02/11/25 05:27 Range/Units Serum Glucose 98 74-106 mg/dL Problem List/Assessment/Plan Problem List/Assessment/Plan Intractable knee pain secondary to left medial meniscus tear - Left knee MRI: There is a tear through the central body of the medial meniscus which may be degenerative as there is grade 4 chondrosis in the overlying medial femoral condyle. Moderate sized joint effusion. Probable small hematoma posterior to the medial knee joint. Of the anterior cruciate ligament is not well seen as presumably torn - [place] 5 mg p.o. Q 4h PRN - [place] 10 mg p.o. q.4 hours p.r.n., discontinued - left knee CT: Small effusion, no acute fractures - Ortho consult: patient requires no emergent orthopedic surgery, will require brace, weight-bearing at tolerance, Will benefit from Physical therapy, patient follow up in ortho clinic. Possible ACL tear - Left knee MRI: There is a tear through the central body of the medial meniscus which may be degenerative as there is grade 4 chondrosis in the overlying medial femoral condyle. Moderate sized joint effusion. Probable small hematoma posterior to the medial knee joint. Of the anterior cruciate ligament is not well seen as presumably torn. Joint effusion Leukocytosis, likely reactive Hypertensive urgency - Hydralazine 10 mg IV once - Clonidine 0.1 mg p.o. once Hypertension, uncontrolled - Chlorothialidone 25 mg p.o. daily - Atenolol 50 mg p.o. daily - Losartan 50 mg p.o. daily Obesity, BMI 32.7 kg/m2 History of cervical intraepithelial neoplasia -s/p bilateral oophorectomy and total hysterectomy Marijuana use -Patient has been counseled on the cessation of marijuana use for over 15 minutes GI prophylaxis: Protonix 40 IV daily Case discussed with Dr. Cordon Goals of care discussed with the patient over 35 minutes, she states she understands and agrees. Plan discussed with: Patient Date of Service: Feb 11, 2025 Billing Provider: ANANDA CORDON MD Common Visit Codes: [id number] INP/OBS CARE(MOD) TALHA CARTER RESIDENT Feb 12, 2025 19:12 ANANDA CORDON MD Feb 14, 2025 20:31
== END 2025-02-12 19:44 | disposition home health service (06) | DRG 342 ==
LOC: ER 15:15 → OVERFLOW 21:44 → EAST 02-09 23:23 → UNDODISIN 02-11 16:20
PROVIDERS: ADMIT Internal Medicine Geriatric Medicine; ATTEND Internal Medicine Geriatric Medicine
DX: S83.242A Other tear of medial meniscus, current injury, left knee, initial encounter (principal); D72.829 Elevated white blood cell count, unspecified; E66.9 Obesity, unspecified; F17.210 Nicotine dependence, cigarettes, uncomplicated; S83.512A Sprain of anterior cruciate ligament of left knee, initial encounter; M17.12 Unilateral primary osteoarthritis, left knee; I16.0 Hypertensive urgency; M25.462 Effusion, left knee; Z88.1 Allergy status to other antibiotic agents; Z88.8 Allergy status to other drugs, medicaments and biological substances; Z68.32 Body mass index [BMI] 32.0-32.9, adult; Z79.1 Long term (current) use of non-steroidal anti-inflammatories (NSAID); Z79.2 Long term (current) use of antibiotics; Z79.899 Other long term (current) drug therapy; X58.XXXA Exposure to other specified factors, initial encounter; Y93.89 Activity, other specified; Y92.89 Other specified places as the place of occurrence of the external cause; Y99.8 Other external cause status
CPT/HCPCS: 36415; 73700; 73721; 80048; 80053; 81003; 85025; 86803; 87340; 93005; 97110; 97116; 97163; G0378; J2405; J2470